=== PATIENT | male | born 1975 | race American Indian/Alaskan Native ===

== ENCOUNTER 2021-07-28 10:33 | Emergency (ER) | payer SELFPAY ==
[2021-07-28] MEDS ORDERED: KETOROLAC 30 MG/1 ML INJ IV ONE (10:56)
[2021-07-28] MEDS ORDERED: MORPHINE 2 MG/1 ML INJ IV ONE (10:56)
[2021-07-28] MEDS ORDERED: SODIUM CHLORIDE 0.9% 1000 ML 1,000 ML IV ONE (10:58)
--- NOTE | 2021-07-28 11:02 | Emergency Department Report ---
ED General Adult HPI - General Chief complaint: Chest Pain Stated complaint: CP Time Seen by Provider: 07/28/21 10:53 Source: patient Mode of arrival: Ambulatory Limitations: No Limitations - History of Present Illness Initial comments: Patient presents with chest pain. He started having chest pain across the precordium yesterday and today. This pain is worse with upright position. It is worse with inspiration. When he does not move or leans forward, he feels much better. Patient has had pain like this before. He has a history of sickle cell disease. This is the same pain he has had with sickle crisis before. He did take Percocet, which is his usual medication. That provided no symptomatic improvement. He came here for evaluation. There has been no recent history of fevers or chills. Has no cough or congestion. There is no recent travel or trauma. Pain is not specifically exertional. It is more related to movement of the chest wall. He has not had pain or swelling in the extremities. Again, he states that this is the same pain he always gets with sickle crisis. Severity scale (0 -10): 10 - Related Data Previous Rx's Medication Instructions Recorded Last Taken Type Doxycycline Monohydrate 100 mg PO BID #20 cap 07/28/21 Unknown Rx [Doxycycline Monohydrate CAP] Allergies Allergy/AdvReac Type Severity Reaction Status Date / Time No Known Allergies Allergy Unverified 07/28/21 10:36 ED Review of Systems ROS: Stated complaint: CP Other details as noted in HPI Comment: All other systems reviewed and negative Constitutional: denies: fever Eyes: denies: eye pain ENT: denies: throat pain Respiratory: denies: cough Cardiovascular: as per HPI Endocrine: denies: unexplained weight loss Gastrointestinal: denies: abdominal pain Genitourinary: denies: dysuria Musculoskeletal: denies: back pain Skin: denies: rash Neurological: denies: headache Hematological/Lymphatic: denies: easy bruising ED Past Medical Hx - Past Medical History Additional medical history: Sickle cell disease - Family History Family history: other (Sickle cell disease) - Medications Home Medications: Home Medications Medication Instructions Recorded Confirmed Last Taken Type Doxycycline Monohydrate 100 mg PO BID #20 cap 07/28/21 Unknown Rx [Doxycycline Monohydrate CAP] ED Physical Exam - General Limitations: No Limitations, Other (Pulse ox noted and normal) General appearance: alert, in no apparent distress - Head Head exam: Present: atraumatic, normocephalic, normal inspection - Eye Eye exam: Present: normal appearance, PERRL, EOMI. Absent: scleral icterus - ENT ENT exam: Present: mucous membranes moist, normal external ear exam - Neck Neck exam: Present: normal inspection. Absent: meningismus - Respiratory Respiratory exam: Present: normal lung sounds bilaterally. Absent: respiratory distress - Cardiovascular Cardiovascular Exam: Present: regular rate, normal rhythm - GI/Abdominal GI/Abdominal exam: Present: soft. Absent: tenderness - Extremities Exam Extremities exam: Present: normal capillary refill. Absent: calf tenderness - Back Exam Back exam: Absent: CVA tenderness (R), CVA tenderness (L) - Neurological Exam Neurological exam: Present: alert, oriented X3, CN II-XII intact, normal gait. Absent: motor sensory deficit - Psychiatric Psychiatric exam: Present: normal affect, normal mood - Skin Skin exam: Present: warm, dry ED Course Vital Signs 07/28/21 07/28/21 07/28/21 10:37 10:59 11:02 Temperature 97.8 F Pulse Rate 99 H 102 H Respiratory 18 Rate Blood Pressure Blood Pressure 140/57 [Right] O2 Sat by Pulse 100 100 100 Oximetry 07/28/21 07/28/21 07/28/21 11:15 11:31 11:45 Temperature Pulse Rate 85 77 72 Respiratory 21 14 13 Rate Blood Pressure 139/89 139/89 144/84 Blood Pressure [Right] O2 Sat by Pulse 100 99 99 Oximetry 07/28/21 07/28/21 07/28/21 12:01 12:15 12:31 Temperature Pulse Rate 76 75 72 Respiratory 17 22 25 H Rate Blood Pressure 133/80 139/85 139/85 Blood Pressure [Right] O2 Sat by Pulse 99 100 99 Oximetry 07/28/21 07/28/21 07/28/21 12:45 13:01 13:15 Temperature Pulse Rate 76 83 85 Respiratory 17 18 16 Rate Blood Pressure 139/85 139/85 139/85 Blood Pressure [Right] O2 Sat by Pulse 100 99 97 Oximetry - Reevaluation(s) Reevaluation #1: 07/28/21 11:01 EKG was noted. IV and labs were ordered. Old records were reviewed. Reevaluation #2: 07/28/21 13:25 Labs and x-ray have been noted. Analgesics have been repeated. Reevaluation #3: 07/28/21 13:34 Patient is comfortable going home at this point. ED Medical Decision Making - Lab Data Result diagrams: 07/28/21 11:07 07/28/21 11:07 Rhythm strip: Normal sinus rhythm without ectopy. Monitor observe 10 seconds. - EKG Data -: EKG Interpreted by Me - EKG Data When compared to previous EKG there are: previous EKG unavailable 07/28/21 11:01 1046-EKG shows normal sinus rhythm at 87. There is right axis deviation with LVH. Patient has no ST elevation to suggest infarct. There is ST depression in lead aVF. There are T wave inversions in [address] has [address] depression in V4 through V6. MI is normal at 170. QRS is normal at 96. QT corrected is normal at 424. - Radiology Data Radiology results: report reviewed - Medical Decision Making Patient presents with chest pain consistent with his sickle crisis. Patient did not have a cough or fever. He did not have shortness of breath. He did not have leukocytosis. Despite this, his chest x-ray was read as a patchy infiltrative process in the bases bilaterally. This could certainly represent an atypical pneumonia. This could represent viral infection or Covid. With his history of sickle cell, and the concern that he might develop an acute chest s yndrome, he was placed on empiric antibiotics. He does not have evidence of acute chest syndrome at this time. Patient was treated symptomatically. He was comfortable with the plan, as was his family. He certainly does not have evidence of congestive heart failure. Critical Care Time: No Critical care attestation.: If time is entered above; I have spent that time in minutes in the direct care of this critically ill patient, excluding procedure time. ED Disposition Clinical Impression: Precordial chest pain, Sickle cell crisis, Abnormal chest x-ray Disposition: HOME / SELF CARE / HOMELESS Is pt being admited?: No Condition: Stable Instructions: Incidental Abnormal Radiological Finding, Nonspecific Chest Pain, Adult Additional Instructions: Drink water. Return for problems. Follow-up with your regular doctor for recheck. If you develop fever or cough, please return. Prescriptions: Doxycycline Monohydrate [Doxycycline Monohydrate CAP] 100 mg PO BID #20 cap Referrals: PRIMARY CARE, [Referring] - 3-5 Days CARBUCCIA,JOHN, MD [Staff Physician] - 3-5 Days
--- NOTE | 2021-07-28 11:30 | XRay Report ---
CHEST 1 VIEW INDICATION: cp. COMPARISON: None FINDINGS: SUPPORT DEVICES: None. HEART: Within normal limits. LUNGS/PLEURA: Mild patchy bibasilar predominant airspace disease with no dense consolidation or effus ion. ADDITIONAL FINDINGS: None. IMPRESSION: 1. Lung findings as above. Signer Name: Stan Nevarez MD Signed: 07/28/2021 11:25 AM Workstation Name: [id number]
[2021-07-28 11:41] LABS: Basophils # (Auto) 0.1 K/mm3 (0.0-0.1); Basophils % (Auto) 1.1 % (0.0-1.8); Eosinophils % (Auto) 0.9 % (0.0-4.3); Hematocrit 33.4 % (35.5-45.6); Hemoglobin 11.6 gm/dl (11.8-15.2); Lymphocytes # (Auto) 1.6 K/mm3 (1.2-5.4); Lymphocytes % (Auto) 31.4 % (13.4-35.0); Mean Corpuscular HGB Conc 35 % (32-34); Monocytes # (Auto) 0.4 K/mm3 (0.0-0.8); Monocytes % (Auto) 7.8 % (0.0-7.3); Platelet Count 312 K/mm3 (140-440); Red Blood Count 2.93 M/mm3 (3.65-5.03); Red Cell Distribution Width 15.6 % (13.2-15.2)
[2021-07-28 11:43] LABS: Mean Corpuscular Volume 114 fl (84-94)
[2021-07-28 12:07] LABS: Alanine Aminotransferase 13 units/L (7-56); Albumin 4.5 g/dL (3.9-5); BUN/Creatinine Ratio 19; Blood Urea Nitrogen 15 mg/dL (9-20); Calcium 9.5 mg/dL (8.4-10.2); Hemolysis Index 20
[2021-07-28] MEDS ORDERED: MORPHINE 4 MG/1 ML INJ IV ONE (12:28)
[2021-07-28 13:18] VITALS: BP 139/85
[2021-07-28] MEDS ORDERED: DOXYCYCLINE 100 MG CAP PO ONE (13:33)
--- NOTE | 2021-07-29 11:03 | Electrocardiograph Report ---
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 Electronically Signed On 07-29-2021 11:02:58 EDT by Olu Mcdowell
--- NOTE | 2021-07-29 11:04 | Electrocardiograph Report ---
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 Electronically Signed On 07-29-2021 11:03:40 EDT by Olu Mcdowell
== END 2021-07-28 14:15 | disposition home or self-care (01) ==
LOC: ED 10:33
DX: R07.89 Other chest pain (principal); D57.00 Hb-SS disease with crisis, unspecified; R91.8 Other nonspecific abnormal finding of lung field
CPT/HCPCS: 36415; 71045; 80053; 84484; 85025; 85045; 93005; 96361; 96374; 96375; 96376; 99284; J1885; J2270; J7030; Q0162